=== PATIENT | male | born 1980 | race Asian ===

== ENCOUNTER 2020-12-31 11:21 | Emergency (ER) | payer OTHER ==
[~2020-12-31] VITALS: Ht 182.9 cm; Wt 100.0 kg
[2020-12-31 11:21] VITALS: BP 116/61
--- NOTE | 2020-12-31 11:42 | PHYS DOC ---
General Adult EDM: Chief Complaint: ANKLE PROBLEM HPI: HPI: Patient is a 1-year-old male coming in for left foot pain. Patient has a history of tendon problems and chronic pain in his feet. Is been doing physical therapy up until about a month ago. He was sprinting today when he felt a sharp pain at the base of his heel just below his Achilles tendon. Has been able to ambulate. Denies any twisting or rotation of his ankle. Review of Systems: Review of Systems: All other systems within normal limits except for as noted in the HPI Allergies: Allergies: Allergies Coded Allergies Type Severity Reaction Last Updated Verified No Known Drug Allergies 12/31/20 No Physical Exam: PE: Constitutional: Well developed, well nourished, no acute distress, non-toxic appearance. [] HENT: Normocephalic, atraumatic, bilateral external ears normal, nose normal. [] Eyes: PERRLA, conjunctiva normal, no discharge. [] Neck: No rigidity, supple, no stridor. [] Cardiovascular: Regular rate and rhythm, brisk cap refill [] Lungs & Thorax: Non labored symmetric respirations, no tachypnea or respiratory distress [] Abdomen: Soft, nondistended. Skin: Warm, dry, no erythema, no rash. [] Back: Unremarkable Extremities: No deformities, range of motion grossly intact, no lower extremity edema. Left lower extremity:. 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 Achilles tendon intact. No tenderness on bilateral malleoli, fifth metatarsal, dorsum of the foot. [] Neurologic: Alert and oriented X 3, no focal deficits noted. [] Psychologic: Affect normal, judgement normal, mood normal. [] EKG: EKG: [] Radiology/Procedures: Radiology/Procedures: XR EXAM OF ANKLE_LEFT 3V History: Reason: heal pain / Spl. Instructions: / History: Technique: 3 views left ankle Comparison: None. Findings: Normal alignment. Symmetric ankle mortise. No fracture. Small plantar calcaneal spur. Impression: 1. No acute osseous abnormality. 2. Small plantar calcaneal spur. [] Heart Score: C/O Chest Pain: No Risk Factors: Risk Factors: DM, Current or recent (<one month) smoker, HTN, HLP, family history of CAD, obesity. Risk Scores: Score 0 - 3: 2.5% MACE over next 6 weeks - Discharge Home Score 4 - 6: 20.3% MACE over next 6 weeks - Admit for Clinical Observation Score 7 - 10: 72.7% MACE over next 6 weeks - Early Invasive Strategies Course & Med Decision Making: Course & Med Decision Making Pertinent Labs and Imaging studies reviewed. (See chart for details) [] Dragon Disclaimer: Dragon Disclaimer: This electronic medical record was generated, in whole or in part, using a voice recognition dictation system. Departure Departure: Impression: Primary Impression: Injury of left foot Disposition: HOME / SELF CARE / HOMELESS Condition: STABLE Referrals: PCP,NO (PCP) [facility] Patient Instructions: RICE - Routine Care for Injuries BELÉN MEHTA MD Dec 31, 2020 11:42
[2020-12-31] MEDS ORDERED: KETOROLAC 60 MG/2 ML VIAL. IM ONE (11:45)
--- NOTE | 2020-12-31 12:19 | RAD ---
XR EXAM OF ANKLE_LEFT 3V History: Reason: heal pain / Spl. Instructions: / History: Technique: 3 views left ankle Comparison: None. Findings: Normal alignment. Symmetric ankle mortise. No fracture. Small plantar calcaneal spur. Impression: 1. No acute osseous abnormality. 2. Small plantar calcaneal spur. Electronically signed by: Tomasz Pizarro DO (12/31/2020 12:16 PM) [facility]
== END 2020-12-31 12:40 | disposition home or self-care (01) ==
LOC: ER 11:21
DX: S99.922A Unspecified injury of left foot, initial encounter (principal); G89.29 Other chronic pain; X50.9XXA Other and unspecified overexertion or strenuous movements or postures, initial encounter; Y93.89 Activity, other specified; Y92.89 Other specified places as the place of occurrence of the external cause; Y99.8 Other external cause status
CPT/HCPCS: 73610; 96372; 99283; J1885